=== PATIENT | male | born 1995 | race African-American/Black ===

== ENCOUNTER 2018-07-04 09:25 | Emergency (ER) | payer SELFPAY ==
[~2018-07-04] VITALS: Ht 198.1 cm; Wt 75.5 kg
[2018-07-04 10:08] VITALS: BP 105/60
[2018-07-04] MEDS ORDERED: BACITRACIN ZINC OINT 500U/GM, 0.9 GM ONE (12:14)
== END 2018-07-04 12:28 | disposition home or self-care (01) ==
LOC: ED 12:27
DX: S70.02XA Contusion of left hip, initial encounter (principal); V49.49XA Driver injured in collision with other motor vehicles in traffic accident, initial encounter; Y93.89 Activity, other specified; Y92.89 Other specified places as the place of occurrence of the external cause; Y99.8 Other external cause status
CPT/HCPCS: 99283